=== PATIENT | male | born 1995 | race Caucasian/White ===

== ENCOUNTER 2016-09-12 16:59 | Emergency (ER) | payer OTHER ==
[2016-09-12 17:22] VITALS: BP 117/69
--- NOTE | 2016-09-12 18:26 | UC ---
Complaint Male HPI - HPI Summary HPI Summary: 21 year old male with complaints of red area on the shaft of his penis x 2 days. The area is non painful, it does not itch. He denies testicular pain, denies penile pain or drainage. Denies painful urination. He has had one new sexual partner within the last 3 months. He is concerned that he may have an STI partners with women - History of Current Complaint Chief Complaint: UCGU Stated Complaint: PERSONAL Time Seen by Provider: 09/12/16 18:06 Hx Obtained From: Patient Onset/Duration: Sudden Onset, Lasting Days - 2, Still Present Timing: Constant Severity Currently: None Location: Penis Aggravating Factor(s): Nothing Alleviating Factor(s): Nothing - he has not tried anything Associated Signs And Symptoms: Negative: Diaphoresis, Back Pain, Fever, Hematuria, Dysuria, Rectal Pain, Appetite, Nausea, Penile Swelling, Penile Discharge - Risk Factors Testicular Torsion: Negative - Allergies/Home Medications Allergies/Adverse Reactions: Allergies Allergy/AdvReac Type Severity Reaction Status Date / Time Cefadroxil [From [facility]] Allergy UNSURE-HAPPENED Verified 09/12/16 17:22 A CHILD PMH/Surg Hx/FS Hx/Imm Hx Previously Healthy: Yes Endocrine History Of: Denies: Diabetes, Thyroid Disease Cardiovascular History Of: Denies: Cardiac Disorders, Hypertension, Pacemaker/ICD Respiratory History Of: Denies: COPD, Asthma GI/ History Of: Denies: Ulcer - Surgical History Surgical History: Yes Surgery Procedure, Year, and Place: 2009- Rt SHOULDER- LABRAL REPAIR - Family History Known Family History: Positive: Cardiac Disease - father had first OK at age 40 Negative: Diabetes Family History: no cardio vascular issues in family lineage - Social History 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 [employer] Lives: With Family Alcohol Use: Occasionally Substance Use Type: None Smoking Status (MU): Never Smoked Tobacco Have You Smoked in the Last Year: No - Immunization History Most Recent Influenza Vaccination: 2014 Most Recent Tetanus Shot: up to date Most Recent Pneumonia Vaccination: never Review of Systems Constitutional: Negative Skin: Rash Eyes: Negative ENT: Negative Respiratory: Negative Cardiovascular: Negative Gastrointestinal: Negative Genitourinary: Negative Motor: Negative Neurovascular: Negative Musculoskeletal: Negative Neurological: Negative Psychological: Negative All Other Systems Reviewed And Are Negative: Yes Physical Exam Triage Information Reviewed: Yes Appearance: Well-Appearing, Well-Nourished, Pain Distress - anxious Vital Signs: Initial Vital Signs Temp 98.3 F 09/12/16 17:18 Pulse 47 09/12/16 17:18 Resp 16 09/12/16 17:18 BP 117/69 09/12/16 17:18 Pulse Ox 100 09/12/16 17:18 Vital Signs Reviewed: Yes Eyes: Positive: Conjunctiva Clear. Negative: Discharge ENT: Positive: Pharynx normal. Negative: Nasal congestion Neck: Positive: Supple, Nontender, No Lymphadenopathy Respiratory: Positive: Lungs clear, Normal breath sounds Cardiovascular: Positive: RRR, No Murmur Abdomen Description: Positive: Nontender, Soft. Negative: CVA Tenderness (R), CVA Tenderness (L) Musculoskeletal: Positive: Strength Intact, ROM Intact Neurological: Positive: Alert, Muscle Tone Normal Psychological: Positive: Age Appropriate Behavior - pleasant and cooperative Skin: Positive: rashes - 0.5 cm oval mild erythematous area on anterior shaft of his penis. sharp boarder edges. nontender. skin intact, no lesions noted. no testicular pain. no ingiunal lymph nodes appreciated. UC Physical Exam Vital Signs On Initial Exam: Initial Vitals Temp Pulse Resp BP Pulse Ox 98.3 F 47 16 117/69 100 09/12/16 17:18 09/12/16 17:18 09/12/16 17:18 09/12/16 17:18 09/12/16 17:18 - Genitalia Exam Male Genitalia: Circumcised, Other - 0.5 cm oval mild erythematous area on anterior shaft of his penis. sharp boarder edges. nontender. skin intact, no lesions noted. no testicular pain. no ingiunal lymph nodes appreciated. circumcised male. Male Genitalia Cont.: Bilateral: Testicles Descended, Testicles Non-Tender, Testicles w/o Swelling, Scrotum Without Erythema Complaint Male Course/Dx - Course Course Of Treatment: gc/chlam - pending. HIV, hep c, and RPR - pending. education that he needs retesting in 3 months to know his status. Education about genital herpes and symptoms - he is reassured. Education about safe sex practices - Differential Dx/Diagnosis Differential Diagnosis/HQI/PQRI: Other - STI Provider Diagnoses: Tinea Cruris Discharge - Discharge Plan Condition: Stable Disposition: HOME Prescriptions: Clotrimazole (Topical) [Clotrimazole Antifungal] 1 % TOPICAL BID #1 tube Patient Education Materials: Edmar Edmonds (ED) Referrals: No Primary Care Phys,NOPCP [Primary Care Provider] - [facility] [Outside] (to help you become established with a primary care doctor)
[2016-09-14 09:46] LABS: Syphilis Index < 0.1 Index
== END 2016-09-12 18:56 | disposition home or self-care (01) ==
LOC: UCEAST 16:59
DX: B35.6 Tinea cruris (principal); Z88.1 Allergy status to other antibiotic agents; Z11.4 Encounter for screening for human immunodeficiency virus [HIV]
CPT/HCPCS: 36415; 86592; 86703; 86803; 87491; 87591; 99212; G0463

== ENCOUNTER 2017-07-03 10:45 | Emergency (ER) | payer OTHER ==
[2017-07-03 10:56] VITALS: BP 103/60
[2017-07-03] MEDS ORDERED: Sulfamethox/Trimethoprim DS 800/160* TAB PO ONE (11:39)
--- NOTE | 2017-07-03 11:51 | UC ---
Skin Complaint HPI - HPI Summary HPI Summary: 22 yo male had a pimple on his left cheek yesterday He squeezed it This am he awoke with some left cheek and lower eyelid swelling no fever no GOMEZ or myalgias no hx MRSA - History of Current Complaint Chief Complaint: UCSkin Time Seen by Provider: 07/03/17 11:24 Stated Complaint: EYE ISSUE Hx Obtained From: Patient Onset/Duration: Gradual Onset, Lasting Hours Skin Exposure Onset/Duration: Hours Ago Timing: Constant Onset Severity: Mild Current Severity: Mild Pain Intensity: 4 Pain Scale Used: 0-10 Numeric Location: Discrete Character: Swelling, Redness, Raised, Painful Aggravating Factor(s): Touch Alleviating Factor(s): Heat Associated Signs & Symptoms: Positive: Tenderness - Allergy/Home Medications Allergies/Adverse Reactions: Allergies Allergy/AdvReac Type Severity Reaction Status Date / Time Cefadroxil [From [facility]] Allergy UNSURE-HAPPENED Verified 07/03/17 10:57 A CHILD Review of Systems Constitutional: Fatigue Skin: Negative Eyes: Negative ENT: Negative Respiratory: Negative Cardiovascular: Negative Gastrointestinal: Negative Genitourinary: Negative Motor: Negative Neurovascular: Negative Musculoskeletal: Negative Neurological: Negative Psychological: Negative Is Patient Immunocompromised?: No All Other Systems Reviewed And Are Negative: Yes PMH/Surg Hx/FS Hx/Imm Hx Previously Healthy: Yes - Surgical History Surgical History: Yes Surgery Procedure, Year, and Place: 2009- Rt SHOULDER- LABRAL REPAIR - Family History Known Family History: Positive: Cardiac Disease - father had first [place] at age 40 Negative: Diabetes Family History: no cardio vascular issues in family lineage - Social History Alcohol Use: Occasionally Substance Use Type: None Smoking Status (MU): Never Smoked Tobacco Have You Smoked in the Last Year: No - Immunization History Most Recent Influenza Vaccination: 2014 Most Recent Tetanus Shot: up to date Most Recent Pneumonia Vaccination: never Physical Exam Triage Information Reviewed: Yes Appearance: Well-Appearing, No Pain Distress, Well-Nourished Vital Signs: Initial Vital Signs Temp 98.2 F 07/03/17 10:51 Pulse 48 07/03/17 10:51 Resp 15 07/03/17 10:51 BP 103/60 07/03/17 10:51 Pulse Ox 100 07/03/17 10:51 Eyes: Positive: Conjunctiva Clear, Other: - eomi/perrl/no proptosis ENT: Positive: Hearing grossly normal, TMs normal, Uvula midline. Negative: Nasal congestion, Dental tenderness, Sinus tenderness Neck: Positive: Supple, Nontender, No Lymphadenopathy Respiratory: Positive: Lungs clear, Normal breath sounds, No respiratory distress, No accessory muscle use Cardiovascular: Positive: RRR, No Murmur Musculoskeletal: Positive: ROM Intact, No Edema Neurological: Positive: Alert, Muscle Tone Normal Skin Exam: Other Course/Dx - Diagnoses Provider Diagnoses: facial cellulitis with associated papule (left cheek) Discharge - Discharge Plan Condition: Stable Disposition: HOME Prescriptions: Sulfamethox/Trimethoprim DS* [Bactrim DS 800/160 TAB*] 1 - 2 tab PO BID #20 tab Patient Education Materials: Cellulitis (ED) Referrals: No Primary Care Phys,NOPCP [Primary Care Provider] - Additional Instructions: warm soapy compresses every couple of hours today while awake DON'T SQUEEZE a culture is pending but because there was no drainage I wouldn't be surprised if it comes back negative We will treat you with an antibiotic that will be effective against MRSA To the ER today for increased pain/swelling or fever This should be rechecked tomorrow AM If it has not worsened we are happy to see you back here Today you will be taking a double dose of antibiotic Images Head: 1 - papule 2 - swelling/erthyema
== END 2017-07-03 11:57 | disposition home or self-care (01) ==
LOC: UCEAST 10:45
DX: L03.211 Cellulitis of face (principal); R23.8 Other skin changes
CPT/HCPCS: 87070; 87205; 99202; A9270-GY; G0463

== ENCOUNTER 2017-07-04 09:11 | Emergency (ER) | payer OTHER ==
[2017-07-04 09:35] VITALS: BP 110/42
--- NOTE | 2017-07-04 09:42 | UC ---
Skin Complaint HPI - HPI Summary HPI Summary: Pt presents for recheck . Pt with facial cellulitis of left cheek from an infected pimple. Pt was instructed warm soaks and started on Bactrim. Pt has had 3 doses. Pt states wound is markedly better. reports no fever, chills. STates edema and erythema signficiantly improved - nearly resolved - from yesterday pt feels well without complaints. No drainage. Pt's medications reviewed this visit - History of Current Complaint Chief Complaint: UCSkin Time Seen by Provider: 07/04/17 09:42 Stated Complaint: FOLLOW-UP VISIT Hx Obtained From: Patient - Allergy/Home Medications Allergies/Adverse Reactions: Allergies Allergy/AdvReac Type Severity Reaction Status Date / Time Cefadroxil [From [employer]] Allergy UNSURE-HAPPENED Verified 07/03/17 10:57 A CHILD Review of Systems Constitutional: Negative Skin: Other - left cheek infected pimple All Other Systems Reviewed And Are Negative: Yes PMH/Surg Hx/FS Hx/Imm Hx Previously Healthy: Yes - Surgical History Surgical History: Yes Surgery Procedure, Year, and Place: 2009- Rt SHOULDER- LABRAL REPAIR - Family History Known Family History: Positive: Cardiac Disease - father had first [place] at age 40 Negative: Diabetes Family History: no cardio vascular issues in family lineage - Social History Occupation: Student Lives: Dormitory/Roommates Alcohol Use: Occasionally Substance Use Type: None Smoking Status (MU): Never Smoked Tobacco Have You Smoked in the Last Year: No - Immunization History Most Recent Influenza Vaccination: 2014 Most Recent Tetanus Shot: up to date Most Recent Pneumonia Vaccination: never Physical Exam Triage Information Reviewed: Yes Appearance: Well-Appearing, No Pain Distress, Well-Nourished Vital Signs: Initial Vital Signs Temp 97.9 F 07/04/17 09:28 Pulse 52 07/04/17 09:28 Resp 14 07/04/17 09:28 BP 110/42 07/04/17 09:28 Pulse Ox 98 07/04/17 09:28 Vital Signs Reviewed: Yes Eye Exam: Normal ENT Exam: Normal ENT: Positive: Normal ENT inspection, Hearing grossly normal, Pharynx normal Dental Exam: Normal Neck exam: Normal Neck: Positive: Supple, Nontender Respiratory Exam: Normal Respiratory: Positive: Chest non-tender, Lungs clear, Normal breath sounds, No respiratory distress, No accessory muscle use Cardiovascular Exam: Normal Cardiovascular: Positive: RRR, No Murmur Musculoskeletal Exam: Normal Neurological Exam: Normal Psychological Exam: Normal Skin: Positive: Other - left cheek Pt with 1x1 cm inflammed follicle medial zygomatic arch, no nasal tissue involved. no lid involvement. No fluctuance, induration No surrouding edema, erythema no crepitus Course/Dx - Course Course Of Treatment: with left sided facial cellulitis - pt on bactrim. Pt states sx improved. Pt well appearing. continue abx. warm soaks. motrin/ apap. discussed wound care. pt comfortable and in agreement with plan - Diagnoses Provider Diagnoses: infected follicle. mild cellulitis Discharge - Discharge Plan Condition: Stable Disposition: HOME Patient Education Materials: Cellulitis (ED) Referrals: [facility] [[facility]] No Primary Care Phys,NOPCP [Primary Care Provider] - Additional Instructions: - Apply warm wet soak 2-3 times a day for 10 minutes at a time - Take antibiotics as prescribed until gone - okay to apply a thin layer of antibiotic ointment such as neosporin or polysporin 2 times a day - Alternate ibuprofen (advil, Motrin) and tylenol every 3 hours for pain. Take with food - Contact your doctor or return with questions or concerns
== END 2017-07-04 10:04 | disposition home or self-care (01) ==
LOC: UCEAST 09:11
DX: L03.90 Cellulitis, unspecified (principal)
CPT/HCPCS: 99211; G0463

== ENCOUNTER 2018-02-10 12:04 | Emergency (ER) | payer OTHER ==
[2018-02-10 12:13] VITALS: BP 114/61
--- NOTE | 2018-02-10 13:06 | UC ---
Complaint Male HPI - HPI Summary HPI Summary: 22 yo male had a pimple on the dorsum of his penis He squeezed it and got scant pus (2 days ago) Hx of staph infection desires STD testing - History of Current Complaint Chief Complaint: UCSTDScreening Stated Complaint: STD TESTING Time Seen by Provider: 02/10/18 13:06 Hx Obtained From: Patient Onset/Duration: Gradual Onset, Lasting Days Timing: Constant Severity Initially: Mild Severity Currently: None Pain Intensity: 0 Pain Scale Used: 0-10 Numeric Location: Penis Associated Signs And Symptoms: Positive: Negative - Allergies/Home Medications Allergies/Adverse Reactions: Allergies Allergy/AdvReac Type Severity Reaction Status Date / Time cefadroxil [From [facility]] Allergy Unknown Verified 02/10/18 12:14 Reaction Details PMH/Surg Hx/FS Hx/Imm Hx Previously Healthy: Yes - Surgical History Surgical History: Yes Surgery Procedure, Year, and Place: 2009- Rt SHOULDER- LABRAL REPAIR - Family History Known Family History: Positive: Cardiac Disease - father had first [place] at age 40 Negative: Diabetes Family History: no cardio vascular issues in family lineage - Social History Alcohol Use: Occasionally Substance Use Type: None Smoking Status (MU): Never Smoked Tobacco Have You Smoked in the Last Year: No - Immunization History Most Recent Influenza Vaccination: 2014 Most Recent Tetanus Shot: up to date Most Recent Pneumonia Vaccination: never Review of Systems Constitutional: Negative Skin: Negative Eyes: Negative ENT: Negative Respiratory: Negative Cardiovascular: Negative Gastrointestinal: Negative Genitourinary: Negative Motor: Negative Neurovascular: Negative Musculoskeletal: Negative Neurological: Negative Psychological: Negative Is Patient Immunocompromised?: No All Other Systems Reviewed And Are Negative: Yes Physical Exam Triage Information Reviewed: Yes Appearance: Well-Appearing, No Pain Distress, Well-Nourished Vital Signs: Initial Vital Signs Temp 97.9 F 02/10/18 12:09 Pulse 69 02/10/18 12:09 Resp 16 02/10/18 12:09 BP 114/61 02/10/18 12:09 Pulse Ox 99 02/10/18 12:09 Vital Signs Reviewed: Yes Eyes: Positive: Conjunctiva Clear ENT: Positive: Hearing grossly normal. Negative: Nasal congestion, Nasal drainage, Tonsillar swelling, Tonsillar exudate, Sinus tenderness, Uvula midline Neck: Positive: Supple, Nontender Respiratory: Positive: Lungs clear, Normal breath sounds, No respiratory distress Cardiovascular: Positive: RRR, No Murmur Male Genital Exam: Positive: No Hernia, Other - BB sized papule dorsom of mid shaft penis- no umbilicated no overlying erthyema Musculoskeletal: Positive: ROM Intact, No Edema Neurological: Positive: Alert Psychological Exam: Normal Skin Exam: Normal Complaint Male Course/Dx - Differential Dx/Diagnosis Provider Diagnoses: penile papule. request for STD testing Discharge - Sign-Out/Discharge Documenting (check all that apply): Discharge/Admit/Transfer - Discharge Plan Condition: Stable Disposition: HOME Prescriptions: Sulfamethox/Trimethoprim DS* [Bactrim DS 800/160 TAB*] 1 tab PO BID #14 tab Patient Education Materials: Safe Sex (ED) Referrals: Nori Syed [Medical Doctor] - If Needed (Chain [employer]) Additional Instructions: It the papule on your penis does not resolve with antibiotics please follow up with learning coordinator lab work is pending - Billing Disposition and Condition Condition: STABLE Disposition: Home
[2018-02-12 14:43] LABS: Herpes Simplex Virus II IgG AB Negative (Negative)
== END 2018-02-10 13:35 | disposition home or self-care (01) ==
LOC: UCEAST 12:04
DX: N48.89 Other specified disorders of penis (principal); Z11.3 Encounter for screening for infections with a predominantly sexual mode of transmission; Z11.4 Encounter for screening for human immunodeficiency virus [HIV]; Z88.1 Allergy status to other antibiotic agents; Z82.49 Family history of ischemic heart disease and other diseases of the circulatory system
CPT/HCPCS: 36415; 86592; 86695; 86696; 86703; 86803; 87491; 87591; 99212; G0463

== ENCOUNTER 2019-06-29 17:07 | Emergency (ER) | payer OTHER ==
[2019-06-29 17:18] VITALS: BP 113/66
[2019-06-29] MEDS ORDERED: predniSONE TAB* 20 MG PO ONE (17:39)
--- NOTE | 2019-06-29 17:43 | UC ---
Skin Complaint HPI - HPI Summary HPI Summary: 24-year-old male comes in with a chief complaint of rash. Started yesterday morning when he woke up. It's on his chest and on his right shoulder. It's painful. Started out as a red flat area and today developed vesicles. He has had a reaction to shellfish in the past. He was at a wedding 2 days ago and he wonders if he got cross-contamination was shellfish. No sore throat no difficulty breathing no rash anywhere else. No fevers or chills feels well otherwise. - History of Current Complaint Chief Complaint: UCAllergicReaction Time Seen by Provider: 06/29/19 17:29 Stated Complaint: ALLERGIC REACTION Pain Intensity: 5 - Allergy/Home Medications Allergies/Adverse Reactions: Allergies Allergy/AdvReac Type Severity Reaction Status Date / Time cefadroxil [From [facility]] Allergy Unknown Verified 06/29/19 17:18 Reaction Details shellfish derived Allergy Rash Verified 06/29/19 17:18 Home Medications: Home Medications diphenhydrAMINE HCl [Benadryl Allergy] 50 mg PO ONCE PRN 06/29/19 [History Confirmed 06/29/19] PMH/Surg Hx/FS Hx/Imm Hx Previously Healthy: Yes - Surgical History Surgical History: Yes Surgery Procedure, Year, and Place: 2009- Rt SHOULDER- LABRAL REPAIR - Family History Known Family History: Positive: Cardiac Disease - father had first [place] at age 40 Negative: Diabetes Family History: no cardio vascular issues in family lineage - Social History Alcohol Use: Occasionally Substance Use Type: None Smoking Status (MU): Never Smoked Tobacco Have You Smoked in the Last Year: No - Immunization History Most Recent Influenza Vaccination: 2014 Most Recent Tetanus Shot: up to date Most Recent Pneumonia Vaccination: never Review of Systems All Other Systems Reviewed And Are Negative: Yes Constitutional: Positive: Negative Skin: Positive: Other - SEE HPI Eyes: Positive: Negative ENT: Positive: Negative Respiratory: Positive: Negative Cardiovascular: Positive: Negative Gastrointestinal: Positive: Negative Motor: Positive: Negative Neurovascular: Positive: Negative Musculoskeletal: Positive: Negative Neurological: Positive: Negative Psychological: Positive: Negative Is Patient Immunocompromised?: No Physical Exam Triage Information Reviewed: Yes Appearance: Well-Appearing, No Pain Distress, Well-Nourished Vital Signs: Initial Vital Signs Temp 98.1 F 06/29/19 17:14 Pulse 52 06/29/19 17:14 Resp 18 06/29/19 17:14 BP 113/66 06/29/19 17:14 Pulse Ox 99 06/29/19 17:14 Vital Signs Reviewed: Yes Eye Exam: Normal Eyes: Positive: Conjunctiva Clear ENT: Negative: Muffled voice, Hoarse voice Neck: Positive: Supple Respiratory: Positive: No respiratory distress Musculoskeletal: Positive: Strength Intact, ROM Intact Neurological: Positive: Alert, Muscle Tone Normal Psychological: Positive: Age Appropriate Behavior Skin: Positive: Other - Patient has erythematous rash in a patch on his chest over the sternum crossing the midline and also on the right posterior shoulder from the deltoid to the scapular area. There is some linear distribution to it with vesicles with clear yellow fluid. Course/Dx - Course Course Of Treatment: The rash in appearance of a contact dermatitis. On the right shoulder the appearance does have distribution of shingles. However it does Does cross the midline on the sternum making it less likely to be shingles because it crosses the midline. We'll treat with prednisone for allergic reaction. We'll also treat with valacyclovir due to its shingles appearance. We also discussed the possibility of superimposed bacterial infection which it does not appear to have at this time. 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 Otherwise can follow-up his primary care doctor get reevaluated sooner if worse or any questions or concerns. - Diagnoses Provider Diagnosis: Dermatitis Discharge ED - Sign-Out/Discharge Documenting (check all that apply): Patient Departure All imaging exams completed and their final reports reviewed: No Studies - Discharge Plan Condition: Stable Disposition: HOME Prescriptions: methylPREDNISolone [Medrol Dosepak 4 MG*] 0 mg PO .SEE CINDY INSTRUCTION PRN #1 cindy PRN Reason: Rash predniSONE TAB* [Deltasone 20 MG TAB*] 40 mg PO DAILY #10 tab Sulfamethox/Trimethoprim DS* [Bactrim DS 800/160 TAB*] 1 tab PO BID #20 tab Patient Education Materials: Acute Rash (ED), Dermatitis (ED) Referrals: Viet Rivers MD [Medical Doctor] - Additional Instructions: FOLLOW UP WITH YOUR DOCTOR IF NOT COMPLETELY IMPROVED. GO TO THE EMERGENCY DEPARTMENT IF YOUR CONDITION WORSENS; SPREAD OF RASH, FEVER , SHORTNESS OF BREATH, YOU FEEL ILL OR ANY QUESTIONS OR CONCERNS. - Billing Disposition and Condition Condition: STABLE Disposition: Home
== END 2019-06-29 17:53 | disposition home or self-care (01) ==
LOC: UCEAST 17:07
DX: L30.9 Dermatitis, unspecified (principal); Z91.013 Allergy to seafood; Z88.1 Allergy status to other antibiotic agents
CPT/HCPCS: 99212; G0463; J7512

== ENCOUNTER 2019-11-15 11:19 | Emergency (ER) | payer OTHER ==
[2019-11-15 12:20] VITALS: BP 108/72
[2019-11-15 12:25] LABS: Influenza A Molecular Negative (Negative); Influenza B Molecular Negative (Negative)
--- NOTE | 2019-11-15 12:32 | ED ---
HPI Febrile Illness - HPI Summary HPI Summary: 24-year-old white male presents with fever, chills, body aches, minor DRY cough since yesterday. 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 - History of Current Complaint Chief Complaint: UCRespiratory Time Seen by Provider: 11/15/19 12:09 Hx Obtained From: Patient Timing: Lasting Hours Initial Severity: Moderate Current Severity: Moderate Pain Intensity: 0 Aggravating Factors: Nothing Alleviating Factors: Nothing Associated Signs and Symptoms: Negative - Risk Factors Pseudomonas Risk Factors: Negative Serious Bacterial Infection Risk Factors: Negative - Allergy/Home Medications Allergies/Adverse Reactions: Allergies Allergy/AdvReac Type Severity Reaction Status Date / Time [facility] Allergy Unknown Verified 11/15/19 12:21 Reaction Details shellfish derived Allergy Rash Verified 11/15/19 12:21 Home Medications: Home Medications Multiple Vitamin [Multi Vitamin] 1 tab PO DAILY 07/15/16 [History Confirmed ] Ibuprofen [Advil] 600 mg PO ONCE PRN 11/15/19 [History Confirmed 11/15/19] PMH/Surg Hx/FS Hx/Imm Hx Previously Healthy: Yes Endocrine/Hematology History: Denies: Hx Diabetes, Hx Thyroid Disease Cardiovascular History: Denies: Hx Hypertension, Hx Pacemaker/ICD Respiratory History: Denies: Hx Asthma, Hx Chronic Obstructive Pulmonary Disease (COPD) GI History: Denies: Hx Ulcer Sensory History: Denies: Hx Hearing Aid Psychiatric History: Denies: Hx Panic Disorder - Surgical History Surgery Procedure, Year, and Place: 2009- Rt SHOULDER- LABRAL REPAIR Infectious Disease History: No Infectious Disease History: Denies: Hx Clostridium Difficile, Hx Hepatitis, Hx Human Immunodeficiency Virus (HIV), Hx of Known/Suspected MRSA, Hx Shingles, Hx Tuberculosis, Hx Known/ Suspected VRE, Hx Known/Suspected VRSA, History Other Infectious Disease, Traveled Outside the [place] in Last 30 Days - Family History Known Family History: Positive: Cardiac Disease - father had first SD at age 40 Negative: Diabetes Family History: no cardio vascular issues in family lineage - Social History Alcohol Use: Weekly Substance Use Type: Reports: None Smoking Status (MU): Never Smoked Tobacco Have You Smoked in the Last Year: No Review of Systems Positive: Fever, Chills, Fatigue Positive: Sore Throat Cardiovascular: Negative Gastrointestinal: Negative Genitourinary: Negative Musculoskeletal: Negative Skin: Negative Neurological/Mental Status: Negative Psychological: Normal All Other Systems Reviewed And Are Negative: Yes Physical Exam - Summary Physical Exam Summary: Vital Signs Reviewed: Yes Gen: NAD Eye Exam: Normal Eyes: Positive: Conjunctiva Clear ENT: Normal ENT inspection Neck: Supple Respiratory: Lungs clear, Normal breath sounds. Negative: Crackles, Rhonchi, Stridor, Wheezing Cardiovascular Exam: Normal, RRR, S1, S2 Abdomen: NT/ND Musculoskeletal Exam: Normal Neurological Exam: Normal Psychological Exam: Normal Skin Exam: Normal Triage Information Reviewed: Yes Vital Signs On Initial Exam: Initial Vitals Temp Pulse Resp BP Pulse Ox 37.2 C 64 18 108/72 97 11/15/19 12:14 11/15/19 12:14 11/15/19 12:14 11/15/19 12:14 11/15/19 12:14 Vital Signs Reviewed: Yes Appearance: Positive: Well-Appearing Diagnostics - Vital Signs Vital Signs Temp Pulse Resp BP Pulse Ox 11/15/19 12:14 37.2 C 64 18 108/72 97 - Laboratory Lab Results: Lab Results 11/15/19 11/15/19 Range/Units 12:11 12:13 Influenza A (Rapid) Negative (Negative) Influenza B (Rapid) Negative (Negative) Group A Strep Rapid Negative (Negative) Lab Statement: Any lab studies that have been ordered have been reviewed, and results considered in the medical decision making process. 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 Sent for testing. - Diagnoses Provider Diagnoses: Viral syndrome Discharge ED - Sign-Out/Discharge Documenting (check all that apply): Patient Departure All imaging exams completed and their final reports reviewed: No Studies - Discharge Plan Condition: Stable Disposition: HOME Patient Education Materials: Viral Syndrome (ED) - Billing Disposition and Condition Condition: STABLE Disposition: Home
== END 2019-11-15 13:00 | disposition home or self-care (01) ==
LOC: UCEAST 11:19
DX: B34.9 Viral infection, unspecified (principal); Z88.1 Allergy status to other antibiotic agents; Z91.013 Allergy to seafood
CPT/HCPCS: 87651; 99213; G0463